=== PATIENT | male | born 1995 ===

== ENCOUNTER 2022-06-22 09:00 | Outpatient (CLI) | payer OTHER ==
[2022-06-22] MEDS ORDERED: GADOBUTROL 10 MMOL/10 ML VIAL ONE (09:22)
--- NOTE | 2022-06-22 14:48 | MRI Report ---
PROCEDURE: IAC'S W/WO INDICATIONS: Hearing loss CONTRAST: gadavist 10ml TECHNIQUE: Noncontrast sagittal T1 spin echo, axial FLAIR, axial gradient echo, axial diffusion and ADC through the brain. Axial thin-slice 3D CISS, coronal balanced GE, axial T1 spin echo with fat saturation thr ough the internal auditory canals. After the administration of contrast, thin slice axial and gay l T1 spin echo with fat saturation through the internal auditory canals, and axial T1 spin echo with fat saturation through the brain. COMPARISON: None. FINDINGS: Image quality: Excellent. Cerebellopontine angles: No cerebellopontine angle masses. Inner ear structures appear normally for med. No suspicious enhancement in the internal auditory canal or along the course of the 7th cranial nerve. CSF spaces: Ventricles are normal in size and shape. No extra-axial fluid collections. Basal ciste rns are patent. Brain: No intracranial bleeds or mass effects. [place]-white matter interface is intact. No abnormal intracranial enhancement. Diffusion weighted images demonstrate no acute ischemic insults. Brainste m appears normal. Normal intravascular flow voids are present. Skull and face: Calvarial marrow signal is normal. Orbits appear normal. Sinuses: Sinuses and mastoids are clear. IMPRESSION: No acute intracranial finding, intracranial mass, or other significant abnormality to ex plain hearing loss. Reviewed by: Gunnar Bhandari MD on 06/22/2022 2:46 PM PDT Approved by: Gunnar Bhandari MD on 06/22/2022 2:46 PM PDT Station ID: [id number]
[2022-06-22] MEDS ORDERED: GADOBUTROL 10 MMOL/10 ML VIAL IVP ONE (17:10)
== END 2022-06-22 09:01 | disposition home or self-care (01) ==
LOC: DI 09:00
PROVIDERS: ATTEND Student in an Organized Health Care Education/Training Program
DX: H90.42 Sensorineural hearing loss, unilateral, left ear, with unrestricted hearing on the contralateral side (principal)
CPT/HCPCS: 70553; A9585